=== PATIENT | female | born 1960 | race Caucasian/White ===

== ENCOUNTER 2016-06-29 19:19 | Emergency (ER) | payer OTHER | END 2016-06-29 20:10 | disposition home or self-care (01) | LOC: ER 19:19 | DX: S97.82XA Crushing injury of left foot, initial encounter (principal); M81.0 Age-related osteoporosis without current pathological fracture; Z79.899 Other long term (current) drug therapy; Z90.710 Acquired absence of both cervix and uterus; W22.8XXA Striking against or struck by other objects, initial encounter; Y92.69 Other specified industrial and construction area as the place of occurrence of the external cause; Y99.0 Civilian activity done for income or pay ==